=== PATIENT | male | born 1995 | race Caucasian/White ===

== ENCOUNTER 2018-04-07 16:01 | Emergency (ER) | payer OTHER ==
[~2018-04-07] VITALS: Ht 182.9 cm; Wt 90.7 kg
--- OUTSIDE RECORDS SUMMARY | 2018-04-07 16:06 | XMS REPORT ---
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 Medications Name Start Date Expiration Date SIG Comments Zithromax 500 mg oral tablet 07/16/2014 07/21/2014 take 1 tablet by oral route QD x 5 days Problem List Description Status Onset *No known medical problems Active Vital Signs Date Time BP-Sys(mm[Hg] BP-Rossy(mm[Hg]) HR(bpm) RR(rpm) Temp WT HT HC BMI BSA BMI Percentile O2 Sat(%) 04/09/2016 1:10:00 PM 130 mmHg 68 mmHg 61 bpm 18 rpm 97.4 F 222 lbs 73 in 29.29 kg/m2 2.28 m2 99 % 07/16/2014 10:44:00 AM 136 mmHg 70 mmHg 63 bpm 18 rpm 97.6 F 205 lbs 73 in 27.0462 kg/m 2.1885 m 88.5 % 99 % Social History Name Description Comments denies alcohol use Tobacco 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 Results Summary Not available. History Of Immunizations Not available. History of Past Illness Name Date of Onset Comments *No known medical problems Maxillary Sinusitis, Acute Jul 16 2014 10:47AM Acute Pharyngitis Jul 16 2014 10:47AM General Medical Exam, School/Work/etc Apr 09 2016 1:14PM Payers Insurance Name Company Name Plan Name Plan Number Policy Number Policy Group Number Start Date [facility] Med Occupational Medicine [id number] N/A History of Encounters Visit Date Visit Type Provider 04/09/2016 Office visit Colton Kendall MD 07/16/2014 Office visit Tricia Kendrick APRN
--- OUTSIDE RECORDS SUMMARY | 2018-04-07 16:06 | XMS REPORT | Continuity of Care Document ---
Author Author [facility] Address Unknown Phone Unavailable Allergies There is no data. Medications There is no data. Problems There is no data. Procedures There is no data. Results There is no data. Encounters ACCT No. Visit Date/Time Discharge Status Pt. Type Provider Facility Loc./Unit Complaint [id number] 05/13/2016 10:29:08 05/13/2016 23:59:59 CLS Outpatient Manuel Hager [id number] 07/16/2014 11:41:26 07/16/2014 23:59:59 CLS Outpatient Tricia Kendrick
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
[2018-04-07] MEDS ORDERED: NAPR-915 PO (19:07)
[2018-04-07 19:16] VITALS: BP 113/72
== END 2018-04-07 19:15 | disposition home or self-care (01) ==
LOC: EDUNIT# 16:01 → ER 16:03
DX: S80.01XA Contusion of right knee, initial encounter (principal); S80.02XA Contusion of left knee, initial encounter; M79.662 Pain in left lower leg; R40.2142 Coma scale, eyes open, spontaneous, at arrival to emergency department; R40.2252 Coma scale, best verbal response, oriented, at arrival to emergency department; R40.2362 Coma scale, best motor response, obeys commands, at arrival to emergency department; V69.50XA Passenger in heavy transport vehicle injured in collision with unspecified motor vehicles in traffic accident, initial encounter